=== PATIENT | male | born 1960 | race Caucasian/White ===

== ENCOUNTER 2017-12-31 12:45 | Emergency (ER) | END 2017-12-31 14:15 | disposition home or self-care (01) ==

== ENCOUNTER 2019-04-07 05:47 | Emergency (ER) | payer BC ==
[~2019-04-07] VITALS: Ht 167.6 cm; Wt 79.5 kg
[~2019-04-07 05:47] MED LIST: CIPR500T4 PO; IBUP-1542 PO; IBUP-1561 PO; LEVO750T25 PO; LOPE2CAP PO; METR500T PO; NAPR-688 PO
[2019-04-07 05:48] VITALS: Ht 167.6 cm; Wt 79.5 kg
[2019-04-07] MEDS ORDERED: morphine 4 MG/ML VIAL IV STA ×2 (06:16→07:41)
[2019-04-07] MEDS ORDERED: metroNIDAZOLE 500 MG/NS (PMX) 100 ML IVPB STA (06:16)
[2019-04-07] MEDS ORDERED: ONDANSETRON 4 MG INJ ONE (06:25)
[2019-04-07] MEDS ORDERED: LEVOFLOXACIN 750MG/D5W (PMX) 150 ML IVPB ONE (06:30)
[2019-04-07] MEDS ORDERED: KETOROLAC 30 MG INJ IV STA (07:41)
[2019-04-07 09:33] VITALS: BP 130/70; PULSE 78; RESP 20
== END 2019-04-07 09:34 | disposition home or self-care (01) ==
LOC: E/R 05:47
DX: R10.32 Left lower quadrant pain (principal); Z87.19 Personal history of other diseases of the digestive system; Z87.891 Personal history of nicotine dependence
CPT/HCPCS: 36415; 81003; 85025; 96365; 96375; 96376; 99284; J1885; J1956; J2270; J2405